=== PATIENT | male | born 1975 | race Two or more races ===

== ENCOUNTER 2023-09-29 19:42 | Inpatient (IN) | payer OTHER ==
[~2023-09-29] VITALS: Ht 182.9 cm; Wt 104.3 kg
--- NOTE | 2023-09-29 19:54 | NUR ---
PTE ALERTA Y ORIENTADO X3 MISMO REFIERE DOLOR ABDOMINLA EN EL CUADRANTE DERECHO INFERIOR. REFIERE EVACUAR COLOR OSCURO. SE LE ROSALINO S/V Y SE UBICA
[2023-09-30] MEDS ORDERED: PROMETHAZINE HCL 50 MG/ML AMPUL IM STA (00:59)
[2023-09-30] MEDS ORDERED: MEPERIDINE HCL/PF 50 MG/ML VIAL IM STA (00:59)
[2023-09-30] MEDS ORDERED: 0.9 % SODIUM CHLORIDE 1,000 ML IV ONE (01:00)
[2023-09-30] MEDS ORDERED: PIPERACILLIN/TAZOBACTAM SODIUM 3.375 GM in DEXTROSE 5 % IN WATER 100 ML IV SCH (01:02)
[2023-09-30] MEDS ORDERED: PROMETHAZINE HCL 50 MG/ML AMPUL IM ONE (01:18)
--- NOTE | 2023-09-30 01:20 | NUR ---
PTE EVALAUDO POR MD DANIEL ORDENA T XMED A PTE SE EDUCA A PTE SOBRE EL MISMO Y PTE REIFER EETDER. SE LLEVA CABO ORDENES BAJO MEDIDAS ACEPTICAS. PTE PEND A ESTUDIOS Y RESULTADOS DE LABS.
[2023-09-30] MEDS ORDERED: BARIUM SULFATE 450 ML ORAL.SUSP PO ONE (01:45)
[2023-09-30 02:20] LABS: PH,URINE 5.5 (5.0-8.0); URINE APPEARANCE Clear; URINE BILIRRUBIN Negative (NEGATIVE); URINE BLOOD Negative; URINE COLOR Yellow; URINE GLUCOSE Negative (NEGATIVE); URINE LEUKOCYTE Negative; URINE NITRATE Negative; URINE PROTEIN 30 (NEGATIVE)
[2023-09-30 02:24] LABS: URINE BACTERIA 40.3 uL (0.0-1933); URINE EPITHELIAL CELLS 1.8 uL (0.0-38.8); URINE RBC 4.2 uL (0.0-20.8); URINE WBC 5.4 uL (0.0-23.2)
[2023-09-30 02:28] LABS: HEMATOCRIT 51.7 % (39.0-48.0); HEMOGLOBIN 18.3 g/dL (13-16.00); MEAN CELL VOLUME 99.1 fL (80.0-100.00); MEAN CORPUSCULAR HEMOGLOBIN 35.1 pg (27.00-32.0); MEAN CORPUSCULAR HGB CONC 35.4 g/dl (32.0-36.0); PLATELET COUNT 176 K/uL (150-450); RED BLOOD COUNT 5.22 M/uL (4.00-6.00); RED CELL DISTRIBUTION WIDTH 13.3 % (11.5-14.5)
[2023-09-30 02:37] LABS: INR 0.99; PARTIAL THROMBOPLASTIN TIME 34.1 SECONDS (22.0-34.0); PROTHROMBIN TIME 10.4 SECONDS (9.0-11.5)
[2023-09-30 02:47] LABS: ALBUMIN 3.3 gm/dL (3.4-5.0); BILIRUBIN TOTAL 0.43 mg/dL (0.3-1.2); BILIRUBIN,CONJUGATED 0.12 mg/dL (0.0-0.2); BILIRUBIN,UNCONJUGATED 0.31 mg/dL (0.0-0.6); CALCIUM 8.9 mg/dL (8.5-10.1); CREATININE SERUM 1.06 mg/dL (0.70-1.30); GFR 75.55; POTASSIUM 3.85 mEq/L (3.5-5.1); TOTAL PROTEIN 7.3 gm/dL (6.4-8.2)
[2023-09-30] MEDS ORDERED: PIPERACILLIN/TAZOBACTAM SODIUM 3.375 GM VIAL IV ONE ×3 (06:03→16:28)
--- NOTE | 2023-09-30 07:35 | NUR ---
SE RECIBE PACIENTE ALERTA Y ORIENTADO X3 AL MOMENTO EN ALIVIA EN POSICION SEMI SENTADO AL MOMENTO EN REPOSO. SE OBSERVA PACIENTE EN COMPANIA DE FAMILIAR AL MOMENTO EN ESPERA DE RESULTADO DE CT.
[2023-09-30] MEDS ORDERED: CIPROFLOXACIN IN 5 % DEXTROSE 200 ML IV SCH (12:49)
[2023-09-30] MEDS ORDERED: METRONIDAZOLE/SODIUM CHLORIDE 100 ML IV SCH (12:49)
[2023-09-30] MEDS ORDERED: PANTOPRAZOLE SODIUM 40 MG/VIAL VIAL IV SCH ×3 (12:51→13:02)
[2023-09-30] MEDS ORDERED: ACETAMINOPHEN 325 MG TABLET PO PRN (13:00)
[2023-09-30] MEDS ORDERED: ONDANSETRON HCL 4 MG in 0.9 % SODIUM CHLORIDE 50 ML IV PRN (13:00)
[2023-09-30] MEDS ORDERED: 0.9 % SODIUM CHLORIDE 1,000 ML IV SCH (13:00)
[2023-09-30] MEDS ORDERED: MORPHINE SULFATE 2 MG/ML CARTRIDGE IV SCH (13:11)
[2023-09-30] MEDS ORDERED: CIPROFLOXACIN IN 5 % DEXTROSE 400 MG/200 ML PIGGYBAG IV ONE (16:28)
[2023-09-30] MEDS ORDERED: METRONIDAZOLE/SODIUM CHLORIDE 500 MG/100 ML PIGGYBACK IV ONE (16:28)
[2023-09-30 17:27] LABS: ALBUMIN 2.9 gm/dL (3.4-5.0); CALCIUM 8.4 mg/dL (8.5-10.1); CREATININE SERUM 1.15 mg/dL (0.70-1.30); GFR 68.77; PHOSPHOROUS 3.2 mg/dL (2.5-4.9); POTASSIUM 4.02 mEq/L (3.5-5.1)
[2023-10-02 08:39] LABS: FECAL LEUKOCYTES POSITIVE (NEGATIVE)
== END 2023-10-03 16:39 | disposition home or self-care (01) | DRG 392 ==
LOC: ER 19:43 → SEC-K 09-30 13:02 → MEDJ 09-30 13:02
PROVIDERS: General Practice; Student in an Organized Health Care Education/Training Program; ADMIT Internal Medicine; ATTEND Internal Medicine
PROC: BW21ZZZ Computerized Tomography (CT Scan) of Abdomen and Pelvis (ICD-10-PCS; principal; 2023-09-30)
DX: K52.9 Noninfective gastroenteritis and colitis, unspecified (principal); F17.210 Nicotine dependence, cigarettes, uncomplicated